=== PATIENT | male | born 1995 | race African-American/Black ===

== ENCOUNTER 2017-05-26 15:00 | Emergency (ER) | payer MEDICAID, OTHER ==
[~2017-05-26] VITALS: Ht 177.8 cm; Wt 61.7 kg
[~2017-05-26 15:00] MED LIST: BENTYL10 MG ORAL; IBUPROFEN600 MG ORAL; NKM; NORCO 5-325 TA1 EACH ORAL; ONDANSETRON ODT4 MG ORAL; ZOFRAN ODT4 MG ORAL; ZOFRAN4 MG ORAL
--- NOTE | 2017-05-26 15:12 | Emergency Room Report ---
History of Present Illness General Chief Complaint: To Be Triaged Source: Patient Present Illness HPI 22YOM walk-in with "non-stop" vomiting today Abd "spasm" to both sides of abdomen, nausea, diarrhea, fever/chills Started after eating a pupusa last night Linn better after vomiting last night but then worst today Denies previous surgery Smokes marijuana regularly - smoked today Allergies: Coded Allergies: No Known Allergies (Unverified , 06/19/14) Patient History Past Medical History: none Past Surgical History: none Pertinent Family History: none Social History: Reports: smoking, drug use Immunizations: UTD Reviewed Nursing Documentation: PMH: Agreed, PSxH: Agreed Nursing Documentation-PMH Hx Cardiac Problems: No Hx Cancer: No Hx Gastrointestinal Problems: No Hx Neurological Problems: No Review of Systems All Other Systems: negative except mentioned in HPI Physical Exam Sp02 EP Interpretation: reviewed, normal General Appearance: normal inspection, well appearing, no apparent distress, alert, GCS 15, non-toxic Head: normocephalic, atraumatic Eyes: bilateral eye PERRL, bilateral eye EOMI ENT: normal ENT inspection, hearing grossly normal, normal voice Neck: normal inspection, full range of motion, supple, no bony tend Respiratory: normal inspection, lungs clear, normal breath sounds, no respiratory distress, no retraction, no wheezing Cardiovascular #1: regular rate, rhythm, no edema Gastrointestinal: normal inspection, normal bowel sounds, non tender, soft, no guarding, no hernia Genitourinary: no CVA tenderness Musculoskeletal: normal inspection, back normal, normal range of motion, Brett' s Sign negative Neurologic: normal inspection, alert, responsive, speech normal Psychiatric: normal inspection, judgement/insight normal, mood/affect normal Skin: normal inspection, normal color, no rash Medical Decision Making Diagnostic Impression: Primary Impression: Abdominal pain Qualified Codes: R10.84 - Generalized abdominal pain Additional Impressions: Nausea & vomiting Qualified Codes: G43.A0 - Cyclical vomiting, not intractable Marijuana abuse ER Course VSS. Afebrile Focal non-tender abdomen Viral gastroenteritis vs cyclic vomiting from marijuana abuse Improved with IV reglan/pepcid and topical capsacian cream Labs: No leuks. H&h stable. No LFT abnormalitites Low suspicion for acute bacterial/surgical process requiring additional lab work , imaging, admission and/or surgical evaluation at this time given well appearing, non-focal abd on serial exam, stable vital signs, and tolerating PO. In shared decision making process with patient, understands to return to ER for worsening symptoms and to followup with PMD in reasonable amount of time, 2-3 days. Status: improved Disposition: HOME, SELF-CARE Scripts Ondansetron Odt* (ZOFRAN ODT*) 4 Mg Tab.rapdis 4 MG ORAL Q12HR Y for Nausea & Vomiting for 7 Days, #14 TAB 0 Refills Prov: CASIMIRO HALL M.D. 05/26/17 Famotidine (PEPCID) 40 Mg Tablet 40 MG PO DAILY for 7 Days, #7 TAB 0 Refills Prov: CASIMIRO HALL M.D. 05/26/17 CASIMIRO HALL M.D. May 26, 2017 15:12
[2017-05-26] MEDS ORDERED: Metoclopramide 10mg/2ml Inj IVP ONE (15:15)
[2017-05-26] MEDS ORDERED: PEPCID40 MG PO (15:28)
[2017-05-26] MEDS ORDERED: ZOFRAN ODT4 MG ORAL (15:28)
[2017-05-26 15:46] LABS: BASOPHILS % (AUTO) 1.4 % (0.0-2.0); EOSINOPHILS % (AUTO) 0.4 % (0.0-3.0); LYMPHOCYTES % (AUTO) 27.4 % (20.0-45.0); MEAN CORPUSCULAR HEMOGLOBIN 29.6 PG (27.0-31.0); MEAN CORPUSCULAR HGB CONC 33.6 G/DL (32.0-36.0); MEAN CORPUSCULAR VOLUME 88 FL (80-99); MEAN PLATELET VOLUME 6.5 FL (6.5-10.1); MONOCYTES % (AUTO) 6.7 % (1.0-10.0); NEUTROPHILS % (AUTO) 64.1 % (45.0-75.0); PLATELET COUNT 266 K/UL (150-450); RED BLOOD COUNT 5.76 M/UL (4.70-6.10); RED CELL DISTRIBUTION WIDTH 12.5 % (11.6-14.8); WHITE BLOOD COUNT 7.8 K/UL (4.8-10.8)
[2017-05-26 16:08] LABS: ALANINE AMINOTRANSFERASE 33 U/L (12-78); ALBUMIN/GLOBULIN RATIO 1.3 (1.0-2.7); ANION GAP 14 mmol/L (5-15); ASPARTATE AMINO TRANSFERASE 23 U/L (15-37); CALCIUM 10.9 MG/DL (8.5-10.1); CARBON DIOXIDE 26 MMOL/L (21-32); CHLORIDE 100 MMOL/L (98-107); CREATININE 1.1 MG/DL (0.55-1.30); GLOMERULAR FILTRATION RATE > 60 mL/min (>60); LIPASE 270 U/L (73-393); POTASSIUM 3.6 MMOL/L (3.5-5.1); SODIUM 140 MMOL/L (136-145); TOTAL PROTEIN 9.3 G/DL (6.4-8.2)
[2017-05-26 16:30] VITALS: BP 148/90
[2017-05-26] MEDS ORDERED: Capsaicin 0.075% Cream TOPIC SCH (18:00)
[2017-05-27] MEDS ORDERED: ZOFRAN4 MG ORAL (00:10)
== END 2017-05-26 16:30 | disposition home or self-care (01) ==
LOC: EMR 15:23
DX: R10.9 Unspecified abdominal pain (principal); R11.2 Nausea with vomiting, unspecified; F12.10 Cannabis abuse, uncomplicated; F17.200 Nicotine dependence, unspecified, uncomplicated
CPT/HCPCS: 36415; 80053; 80307; 83690; 85025; 96361; 96374; 96375; 99284; J2405; J2765; S0028

== ENCOUNTER 2017-05-26 20:34 | Emergency (ER) | payer MEDICAID ==
[~2017-05-26] VITALS: Ht 177.8 cm; Wt 61.7 kg
[~2017-05-26 20:34] MED LIST changes: +PEPCID40 MG PO
[2017-05-26] MEDS ORDERED: Morphine Sulfate 4mg/ml Inj IVP ONE (21:00)
--- NOTE | 2017-05-26 21:15 | Emergency Room Report ---
History of Present Illness General Chief Complaint: Vomiting Source: Patient (CASIMIRO HALL M.D.) Present Illness HPI 22YOM walk-in with continued lower abd pain. States nausea/vomiting improved Was seen by me earlier At that time, labs were normal. No leuks. No LFT abnormalities Afebrile Now stating abd pain is suprapubic, constant Didnt fill any RX since DC - went straight home and then back here multiple hours later (CASIMIRO HALL M.D.) Allergies: Coded Allergies: No Known Allergies (Unverified , 06/19/14) Patient History Past Medical History: none Past Surgical History: none Pertinent Family History: none Social History: Reports: smoking, drug use, Denies: alcohol use Immunizations: UTD Reviewed Nursing Documentation: PMH: Agreed, PSxH: Agreed (CASIMIRO HALL M.D.) Nursing Documentation-PMH Past Medical History: No Stated History Hx Cardiac Problems: No Hx Cancer: No Hx Gastrointestinal Problems: No Hx Neurological Problems: No (CASIMIRO HALL M.D.) Review of Systems All Other Systems: negative except mentioned in HPI (CASIMIRO HALL M.D.) Physical Exam Vital Signs Date Time Temp Pulse Resp B/P (MAP) Pulse Ox O2 Delivery O2 Flow Rate FiO2 05/26/17 20:40 97.3 73 17 136/81 99 Room Air Sp02 EP Interpretation: reviewed, normal General Appearance: normal inspection, well appearing, no apparent distress, alert, GCS 15, non-toxic Head: normocephalic, atraumatic Eyes: bilateral eye PERRL, bilateral eye EOMI ENT: normal ENT inspection, hearing grossly normal, normal voice Neck: normal inspection, full range of motion, supple, no bony tend Respiratory: normal inspection, lungs clear, normal breath sounds, no respiratory distress, no retraction, no wheezing Cardiovascular #1: regular rate, rhythm, no edema Gastrointestinal: normal inspection, normal bowel sounds, non tender, soft, no guarding, no hernia, no pulsatile mass, no rebound, other - Mild tttp suprapubic area Genitourinary: no CVA tenderness Musculoskeletal: normal inspection, back normal, normal range of motion, Brett' s Sign negative Neurologic: normal inspection, alert, responsive, speech normal Psychiatric: normal inspection, judgement/insight normal, mood/affect normal Skin: normal inspection, normal color, no rash (CASIMIRO HALL M.D.) Medical Decision Making Diagnostic Impression: Primary Impression: Abdominal pain Qualified Codes: R10.30 - Lower abdominal pain, unspecified Additional Impression: Cyclic vomiting syndrome Qualified Codes: G43.A0 - Cyclical vomiting, not intractable ER Course Progressive lower abd pain Compelled to do CTAP to r/o appy given second visit today, continued pain Labs: Elevated leuks. Elevated lactate Analgesia provided Empiric Abx given for concern of infection Concern for appy Endorsed to Dr Greer to followup CT at 10pm (CASIMIRO HALL M.D.) ER Course Patient with chronic abdominal pain cyclic vomiting syndrome. Patient signed out to me for CT scan report. CT scan unremarkable. He felt better now. Tolerated by mouth we will discharge home. (FARSHAD GREER M.D.) CT/MRI/US Diagnostic Results CT/MRI/US Diagnostic Results : Imaging Test Ordered: CT abdomen and pelvis Impression Read by radiologist. No acute changes. (FARSHAD GREER M.D.) Last Vital Signs Date Time Temp Pulse Resp B/P (MAP) Pulse Ox O2 Delivery O2 Flow Rate FiO2 05/26/17 20:40 97.3 73 17 136/81 99 Room Air Status: improved (CASIMIRO HALL M.D.) Status: improved (FARSHAD GREER M.D.) Disposition: HOME, SELF-CARE Condition: Stable Scripts Ondansetron (Zofran) 4 Mg Tablet 4 MG ORAL Q6H Y for Nausea & Vomiting, #20 TAB 0 Refills Prov: FARSHAD GREER M.D. 05/27/17 Patient Instructions: Nausea and Vomiting, Adult Additional Instructions: Followup with your DrVania in 2-3 days. Return if worse. CASIMIRO HALL M.D. May 26, 2017 21:14 FARSHAD GREER M.D. May 27, 2017 00:10
[2017-05-26 21:23] VITALS: BP 145/81
[2017-05-26 21:26] LABS: HEMATOCRIT 50.9 % (42.0-52.0); HEMOGLOBIN 15.9 G/DL (14.2-18.0); MEAN CORPUSCULAR VOLUME 90 FL (80-99); PLATELET COUNT 261 K/UL (150-450); RED BLOOD COUNT 5.67 M/UL (4.70-6.10); RED CELL DISTRIBUTION WIDTH 12.4 % (11.6-14.8); WHITE BLOOD COUNT 16.5 K/UL (4.8-10.8)
[2017-05-26 21:27] LABS: APPEARANCE,URINE SLIGHTLY CLOUDY; BILIRUBIN, URINE NEGATIVE (NEGATIVE); COLOR,URINE AMBER; GLUCOSE, URINE (UA) NEGATIVE (NEGATIVE); KETONES,URINE 4+ (NEGATIVE); LEUKOCYTE ESTERASE ,URINE 1+ (NEGATIVE); NITRITE,URINE NEGATIVE (NEGATIVE); PH,URINE 7 (4.5-8.0); PROTEIN,URINE 2+ (NEGATIVE); UROBILINOGEN,URINE 4 MG/DL (0.0-1.0)
[2017-05-26 22:06] LABS: ALANINE AMINOTRANSFERASE 30 U/L (12-78); ALBUMIN 5.1 G/DL (3.4-5.0); ALBUMIN/GLOBULIN RATIO 1.3 (1.0-2.7); ALKALINE PHOSPHATASE 73 U/L (46-116); ANION GAP 17 mmol/L (5-15); ASPARTATE AMINO TRANSFERASE 22 U/L (15-37); BILIRUBIN,TOTAL 1.1 MG/DL (0.2-1.0); BLOOD UREA NITROGEN 13 mg/dL (7-18); CALCIUM 10.7 MG/DL (8.5-10.1); CARBON DIOXIDE 21 MMOL/L (21-32); CHLORIDE 101 MMOL/L (98-107); CREATININE 1.1 MG/DL (0.55-1.30); POTASSIUM 4.2 MMOL/L (3.5-5.1); SODIUM 139 MMOL/L (136-145)
[2017-05-26 22:31] LABS: BILIRUBIN,DIRECT 0.2 MG/DL (0.0-0.3)
[2017-05-26] MEDS ORDERED: HYDROmorphone 1mg/ml Carpuject IVP ONE (23:15)
[2017-05-27] MEDS ORDERED: ZOFRAN4 MG ORAL (00:10)
[2017-05-27 00:32] VITALS: BP 129/72
--- NOTE | 2017-05-27 09:25 | Diagnostic Imaging Report ---
Clinical Indication: Abdominal pain, vomiting x2 days, lower abdominal pain Technique: Patient given oral contrast. IV administration nonionic contrast. Venous phase spiral acquisition obtained through the abdomen and pelvis. Multiplanar reconstructions were generated. Total dose length product 490 mGycm. CTDIvol(s) 10 mGy. Dose reduction achieved using automated exposure control Comparison: 01/17/2016 Findings: Normal appendix. Distal esophagus, stomach, duodenum are unremarkable. No small bowel distention. No free or loculated intraperitoneal air or fluid. No evidence of diverticulosis or diverticulitis. There is suggestion of mild edema of the periportal fat again demonstrated. The gallbladder, bile ducts, pancreas, spleen, adrenals, kidneys are all unremarkable. No mesenteric or retroperitoneal mass or adenopathy. No pelvic mass or adenopathy. No significant interim change The included lung bases are clear. The bones are unremarkable. Impression: Mild periportal edema, nonspecific, unchanged Otherwise unremarkable This agrees with the preliminary interpretation provided overnight by [facility]. The CT scanner at [facility] is accredited by the [employer] [place] [employer] and the scans are performed using protocols designed to limit radiation exposure to as low as reasonably achievable to attain images of sufficient resolution adequate for diagnostic evaluation.
--- NOTE | 2017-05-27 09:25 | Diagnostic Imaging Report ---
Clinical Indication: Abdominal pain, vomiting x2 days, lower abdominal pain Technique: Patient given oral contrast. IV administration nonionic contrast. Venous phase spiral acquisition obtained through the abdomen and pelvis. Multiplanar reconstructions were generated. Total dose length product 490 mGycm. CTDIvol(s) 10 mGy. Dose reduction achieved using automated exposure control Comparison: 01/17/2016 Findings: Normal appendix. Distal esophagus, stomach, duodenum are unremarkable. No small bowel distention. No free or loculated intraperitoneal air or fluid. No evidence of diverticulosis or diverticulitis. There is suggestion of mild edema of the periportal fat again demonstrated. The gallbladder, bile ducts, pancreas, spleen, adrenals, kidneys are all unremarkable. No mesenteric or retroperitoneal mass or adenopathy. No pelvic mass or adenopathy. No significant interim change The included lung bases are clear. The bones are unremarkable. Impression: Mild periportal edema, nonspecific, unchanged Otherwise unremarkable This agrees with the preliminary interpretation provided overnight by [facility]. The CT scanner at [facility] is accredited by the [employer] and the scans are performed using protocols designed to limit radiation exposure to as low as reasonably achievable to attain images of sufficient resolution adequate for diagnostic evaluation.
== END 2017-05-27 00:20 | disposition home or self-care (01) ==
LOC: EMR 21:09
DX: R10.30 Lower abdominal pain, unspecified (principal); G43.A0 Cyclical vomiting, in migraine, not intractable
CPT/HCPCS: 36415; 74177; 80053; 81003; 82248; 83605; 83690; 85007; 85025; 96361; 96372; 96374; 96375; 99284; J1170; J2270; J2405; Q9967

== ENCOUNTER 2017-05-27 18:31 | Emergency (ER) | payer MEDICAID ==
[~2017-05-27] VITALS: Ht 180.3 cm; Wt 61.7 kg
[2017-05-27 19:15] VITALS: BP 107/76
[2017-05-27] MEDS ORDERED: Capsaicin 0.075% Cream TOPIC SCH (19:30)
[2017-05-27] MEDS ORDERED: Lidocaine 2% Visc 15ml soln ORAL ONE (19:45)
[2017-05-27 19:50] VITALS: BP 110/74
[2017-05-27 20:04] VITALS: BP 110/74
--- NOTE | 2017-05-27 20:07 | Emergency Room Report ---
History of Present Illness General Chief Complaint: Abdominal Pain Source: Patient Present Illness HPI 22YOM walk-in for continued nausea/vomiting since yesterday Did not fill Rx from initial visit here yesterday morning This is 3rd visit in [address] Abdomen last night with elevated leuks on 2nd visit MJ smoker Refused to give urine first 2 visits Allergies: Coded Allergies: No Known Allergies (Unverified , 06/19/14) Patient History Past Medical History: none Past Surgical History: none Pertinent Family History: none Social History: Reports: smoking, drug use, Denies: alcohol use Immunizations: UTD Reviewed Nursing Documentation: PMH: Agreed, PSxH: Agreed Nursing Documentation-PMH Past Medical History: No Stated History Hx Cardiac Problems: No Hx Cancer: No Hx Gastrointestinal Problems: No Hx Neurological Problems: No Review of Systems All Other Systems: negative except mentioned in HPI Physical Exam Vital Signs Date Time Temp Pulse Resp B/P (MAP) Pulse Ox O2 Delivery O2 Flow Rate FiO2 05/27/17 18:44 97.7 76 24 102/74 100 Room Air Sp02 EP Interpretation: reviewed, normal General Appearance: normal inspection, well appearing, no apparent distress, alert, GCS 15, non-toxic, other - Dramatic, writhing on stretcher Head: normocephalic, atraumatic ENT: normal ENT inspection, hearing grossly normal, normal voice Neck: normal inspection, full range of motion, supple, no bony tend Respiratory: normal inspection, lungs clear, normal breath sounds, no respiratory distress, no retraction, no wheezing Cardiovascular #1: regular rate, rhythm, no edema Gastrointestinal: normal inspection, normal bowel sounds, non tender, soft, no mass, no guarding, no hernia, no pulsatile mass, no rebound Genitourinary: no CVA tenderness Musculoskeletal: normal inspection, back normal, normal range of motion, Brett' s Sign negative Neurologic: normal inspection, alert, responsive, speech normal Psychiatric: normal inspection, judgement/insight normal, mood/affect normal Skin: normal inspection, normal color, no rash Medical Decision Making Diagnostic Impression: Primary Impression: Intractable abdominal pain Additional Impression: Intractable vomiting Qualified Codes: G43.A1 - Cyclical vomiting, intractable ER Course Refused for 3rd visit in 2 days to give urine sample Very dramatic presentation in ED not consistent with normal vital signs Afebrile Non focal abdomen Given IM zofran in ED Continues to dry heave, even coming over to dry heave in [facility] near doctor station Already has Rx for pepcid/zofran from first visit here yesterday Walked out without signing DC papers Last Vital Signs Date Time Temp Pulse Resp B/P (MAP) Pulse Ox O2 Delivery O2 Flow Rate FiO2 05/27/17 19:15 97.9 76 21 107/76 100 Room Air Status: improved Disposition: HOME, SELF-CARE Condition: Improved Referrals: [facility]ERR[facility] (PCP) Patient Instructions: Food Poisoning CASIMIRO HALL M.D. May 27, 2017 20:07
== END 2017-05-27 20:04 | disposition home or self-care (01) ==
LOC: EMR 19:18
DX: R10.9 Unspecified abdominal pain (principal); R11.2 Nausea with vomiting, unspecified
CPT/HCPCS: 96372; 99284; J2405

== ENCOUNTER 2018-04-10 20:18 | Emergency (ER) | payer MEDICAID ==
[~2018-04-10] VITALS: Ht 177.8 cm; Wt 63.5 kg
[2018-04-10 20:45] VITALS: BP 118/70
[2018-04-10] MEDS ORDERED: PSEUDOEPHEDRINE60 MG PO (21:03)
--- NOTE | 2018-04-10 21:04 | Emergency Room Report ---
History of Present Illness General Chief Complaint: Upper Respiratory Illness Source: Patient Present Illness HPI Is a 22-year-old male with no past medical history. He presents with a cough and congestion for last 3 days. Mom gave him a dose of amoxicillin at night yesterday. He said he felt better now. No fever or chills. Coughing is productive whitish sputum. Does have congestion in his nose. Sick contact in his girlfriend and paperwork. Better now. Denies any other complaint. Allergies: Coded Allergies: No Known Allergies (Unverified , 06/19/14) Patient History Past Medical History: see triage record, old chart reviewed Past Surgical History: none Pertinent Family History: none Social History: Denies: smoking Immunizations: other Reviewed Nursing Documentation: PMH: Agreed; PSxH: Agreed Nursing Documentation-PMH Past Medical History: No Stated History Hx Cardiac Problems: No Hx Cancer: No Hx Gastrointestinal Problems: No Hx Neurological Problems: No Review of Systems Eye: Denies: eye pain, blurred vision ENT: Reports: nose congestion; Denies: ear pain, throat swelling Respiratory: Reports: cough, sputum; Denies: shortness of breath Cardiovascular: Denies: chest pain, palpitations Gastrointestinal: Denies: abdominal pain, diarrhea, nausea, vomiting Musculoskeletal: Denies: back pain, joint pain Skin: Denies: rash Neurological: Denies: headache, numbness Endocrine: Denies: increased thirst, increased urine Hematologic/Lymphatic: Denies: easy bruising All Other Systems: negative except mentioned in HPI Physical Exam Vital Signs Date Time Temp Pulse Resp B/P (MAP) Pulse Ox O2 Delivery O2 Flow Rate FiO2 04/10/18 20:33 98.1 83 17 118/70 97 Room Air 98.1 vitals normal Sp02 EP Interpretation: reviewed, normal General Appearance: well appearing, no apparent distress, alert Head: normocephalic, atraumatic Eyes: bilateral eye PERRL, bilateral eye EOMI ENT: hearing grossly normal, normal pharynx, other - TM with fluids Neck: full range of motion, supple, no meningismus Respiratory: chest non-tender, lungs clear, normal breath sounds Cardiovascular #1: regular rate, rhythm, no murmur Gastrointestinal: normal bowel sounds, non tender, no mass, no organomegaly, no bruit, non-distended Musculoskeletal: back normal, gait/station normal, normal range of motion Psychiatric: mood/affect normal Skin: warm/dry Medical Decision Making Diagnostic Impression: Primary Impression: Upper respiratory infection Qualified Codes: J06.9 - Acute upper respiratory infection, unspecified ER Course Patient with a viral breast or infection. No evidence of any meningitis, sepsis , pneumonia or other serious bacterial infection. We'll discharge home. Last Vital Signs Date Time Temp Pulse Resp B/P (MAP) Pulse Ox O2 Delivery O2 Flow Rate FiO2 04/10/18 20:33 98.1 83 17 118/70 97 Room Air 98.1 Status: improved Disposition: HOME, SELF-CARE Condition: Stable Scripts Pseudoephedrine Hcl* (SUDAFED*) 60 Mg Tablet 60 MG PO Q6H, #30 TAB Prov: FARSHAD GREER M.D. 04/10/18 Patient Instructions: Upper Respiratory Infection, Adult Additional Instructions: Increase fluids. Follow-up with your doctor in 7 days. Return of worse. FARSHAD GREER M.D. Apr 10, 2018 21:04
[2018-04-10 21:16] VITALS: BP 118/70
== END 2018-04-10 21:16 | disposition home or self-care (01) ==
LOC: EMR 21:00
DX: J06.9 Acute upper respiratory infection, unspecified (principal)
CPT/HCPCS: 99282